=== PATIENT | male | born 1960 | race Caucasian/White ===

== ENCOUNTER 2019-01-18 12:46 | Outpatient (CLI) | payer BC | END 2019-01-18 23:59 | disposition home or self-care (01) | LOC: STAR 12:46 | PROVIDERS: ATTEND Orthopaedic Surgery | DX: Z01.818 Encounter for other preprocedural examination (principal); M17.11 Unilateral primary osteoarthritis, right knee; R94.31 Abnormal electrocardiogram [ECG] [EKG] | CPT/HCPCS: 36415; 80048; 83036; 85025; 85610; 85730; 87081; 87806; 93005; G0475 ==

== ENCOUNTER 2019-01-23 06:29 | Observation (INO) | payer BC ==
[~2019-01-23] VITALS: Ht 198.1 cm; Wt 92.6 kg
[~2019-01-23 06:29] MED LIST: IBUP200C8 PO
[2019-01-23] MEDS ORDERED: EPINEPHRINE 1 MG/ML, 1ML ONE (06:56)
[2019-01-23] MEDS ORDERED: TRANEXAMIC ACID 100 MG/ML, 10ML ONE ×4 (06:56)
[2019-01-23] MEDS ORDERED: ROPIvacaine/PF 0.2%, 20 ML ONE (06:56)
[2019-01-23] MEDS ORDERED: SODIUM CHLORIDE 0.9% 50 ML ONE (06:56)
[2019-01-23] MEDS ORDERED: KETOROLAC 60 MG/2 ML ONE (06:56)
[2019-01-23] MEDS ORDERED: GABAPENTIN 300 MG CAPSULE PO STA (07:32)
[2019-01-23] MEDS ORDERED: ACETAMINOPHEN 500 MG TABLET PO STA (07:32)
[2019-01-23] MEDS ORDERED: LACTATED RINGERS 1,000 ML IV SCH (07:32)
[2019-01-23] MEDS ORDERED: DEXAMETHASONE 4 MG/ML, 1ML ONE ×2 (07:52)
[2019-01-23] MEDS ORDERED: PROPOFOL 10 MG/ML, 20ML ONE (07:52)
[2019-01-23] MEDS ORDERED: MIDAZOLAM 1 MG/ML, 2ML ONE (07:52)
[2019-01-23] MEDS ORDERED: FENTANYL PF 250 MCG/5ML ONE (07:52)
[2019-01-23] MEDS ORDERED: CEFAZOLIN 1,000 MG ONE ×2 (07:53)
[2019-01-23] MEDS ORDERED: LIDOCAINE-MPF 2% ,5ML ONE (07:53)
[2019-01-23] MEDS ORDERED: SUCCINYLCHOLINE 20 MG/ML, 10ML ONE (07:53)
[2019-01-23] MEDS ORDERED: LIDOCAINE 4%, 4 ML SYR/CANN TP ONE (08:03)
[2019-01-23] MEDS ORDERED: METOCLOPRAMIDE 5 MG/ML, 2ML IV PRN (08:30)
[2019-01-23] MEDS ORDERED: hydrALAzine 20 MG/ML, 1ML IV PRN (08:30)
[2019-01-23] MEDS ORDERED: ONDANSETRON 2MG/ML, 2ML IV PRN ×2 (08:30→09:30)
[2019-01-23] MEDS ORDERED: MEPERIDINE/PF 25MG/0.5ML IVPush PRN (08:30)
[2019-01-23] MEDS ORDERED: HYDROmorphone 2 MG/ML, 1ML IVPush PRN ×2 (08:30→09:30)
[2019-01-23] MEDS ORDERED: LORazepam 2 MG/ML, 1ML IVPush PRN (08:30)
[2019-01-23] MEDS ORDERED: FENTANYL PF 100 MCG/2ML IV PRN (08:30)
[2019-01-23] MEDS ORDERED: OXYcodone 5 MG/5 ML ORAL.SOL UDC PO PRN (08:30)
[2019-01-23] MEDS ORDERED: ALBUTEROL SULFATE 2.5 MG/3 ML NPPB PRN (08:30)
[2019-01-23] MEDS ORDERED: ONDANSETRON 4 MG TABLET PO PRN (09:30)
[2019-01-23] MEDS ORDERED: MAGNESIUM HYDROXIDE 8%, 30ML UDC PO PRN (09:30)
[2019-01-23] MEDS ORDERED: OXYcodone IR 5MG TABLET PO PRN (09:30)
[2019-01-23] MEDS ORDERED: PROMETHAZINE 25 MG/ML, 1ML IM PRN (09:30)
[2019-01-23] MEDS ORDERED: POLYETHYLENE GLYCOL 17 GM PACKET PO PRN (09:30)
[2019-01-23] MEDS ORDERED: PSYLLIUM PACKET PO PRN (09:30)
[2019-01-23] MEDS ORDERED: TRANEXAMIC ACID 1,000 MG in SODIUM CHLORIDE 0.9% 100 ML IVPB ONE (09:30)
[2019-01-23] MEDS ORDERED: ACETAMINOPHEN 650 MG/20.3 ML UDC PO PRN (09:30)
[2019-01-23] MEDS ORDERED: ALUMINUM/MAG/SIMETHICONE 30 ML UDC PO PRN (09:30)
[2019-01-23] MEDS ORDERED: DIPHENHYDRAMINE 25 MG CAPSULE PO PRN (09:30)
[2019-01-23] MEDS ORDERED: SENNA/DOCUSATE TABLET PO PRN (09:30)
[2019-01-23] MEDS ORDERED: DIPHENHYDRAMINE 50 MG/ML, 1ML IVPush PRN (09:30)
[2019-01-23] MEDS ORDERED: ONDANSETRON 2MG/ML, 2ML ONE ×2 (10:14)
[2019-01-23 13:10] VITALS: BP 130/71
[2019-01-23] MEDS ORDERED: KETOROLAC 30 MG/1 ML IV SCH (15:00)
[2019-01-23] MEDS ORDERED: POTASSIUM CHLORIDE 20 MEQ in D5%-0.45% NACL 1,000 ML IV SCH (15:00)
[2019-01-23] MEDS ORDERED: CEFAZOLIN PMX 1GM/50ML 50 ML IVPB SCH (16:00)
[2019-01-23] MEDS ORDERED: TAMSULOSIN 0.4 MG CAP.ER.24H PO SCH (16:30)
[2019-01-23] MEDS ORDERED: ASPI81TA45 PO (17:39)
[2019-01-23 17:55] VITALS: BP 109/55
[2019-01-23] MEDS ORDERED: ASPIRIN 81 MG TABLET EC PO SCH (18:00)
[2019-01-23] MEDS ORDERED: DOCUSATE 100 MG CAPSULE PO SCH (21:00)
[2019-01-24] MEDS ORDERED: DEXAMETHASONE 4 MG/ML, 1ML IVPush ONE (06:00)
[2019-01-24] MEDS ORDERED: TAMSULOSIN 0.4 MG CAP.ER.24H PO SCH (09:00)
== END 2019-01-23 18:34 | disposition home or self-care (01) ==
LOC: OR 06:29 → 4NOR 09:18 → OR 16:14
PROVIDERS: ADMIT Orthopaedic Surgery; ATTEND Orthopaedic Surgery
DX: M17.11 Unilateral primary osteoarthritis, right knee (principal); Z87.891 Personal history of nicotine dependence; Z79.82 Long term (current) use of aspirin; Z79.899 Other long term (current) drug therapy; Z88.5 Allergy status to narcotic agent
CPT/HCPCS: 27447; 73560; 96365; 96375; 97110; 97116; 97162; C1713; C1776; G0378; J0171; J0330; J0690; J1100; J1885; J2250; J2405; J2704; J2795; J3010; J3480; J3490; J7120